=== PATIENT | female | born 1965 | race Caucasian/White ===

== ENCOUNTER → 2017-12-20 | Outpatient (REF) ==
[~2017-12-20] MED LIST: ANTIVERT 25MG25 MG PO; ESTRADERM0.05 MG/24 TD; FLEXERIL 1010 MG/TAB PO; RESTORIL30 MG PO; SUPRAX; ZOCOR5 MG PO
[2017-12-20 16:51] LABS: THYROID STIMULATING HORMONE 2.8 uIU/mL (0.465-4.680)
== END ==
LOC: ZLAB.WCH 15:55
PROVIDERS: Internal Medicine
DX: Z01.89 Encounter for other specified special examinations (principal)